=== PATIENT | male | born 1955 | race Caucasian/White ===

== ENCOUNTER 2019-05-20 17:45 | Emergency (ER) | payer OTHER ==
[2019-05-20 17:50] VITALS: Wt 86.4 kg
[2019-05-20 18:46] VITALS: BP 143/66
== END 2019-05-20 18:47 | disposition home or self-care (01) ==
LOC: D.ER 17:45
DX: T14.8XXA Other injury of unspecified body region, initial encounter (principal); W57.XXXA Bitten or stung by nonvenomous insect and other nonvenomous arthropods, initial encounter; E11.9 Type 2 diabetes mellitus without complications; I10 Essential (primary) hypertension